=== PATIENT | male | born 1990 | race Caucasian/White ===

== ENCOUNTER → 2021-04-14 | Outpatient (CLI) | payer OTHER ==
--- NOTE | 2021-04-14 09:54 | RAD ---
3 views lumbar spine dated 04/14/2021. No comparison available. Clinical data indication: Back pain. FINDINGS: 3 views lumbar spine show normal sagittal alignment. Vertebral body heights are maintained. Posterior elements are intact. No evidence of fracture. IMPRESSION: No acute radiographic abnormality. Electronically signed by: Vlad Kelley MD (04/14/2021 9:52 AM) [id number]
== END ==
LOC: RAD 09:36
PROVIDERS: ATTEND Family Medicine
DX: M54.5 Low back pain (principal); Z68.25 Body mass index [BMI] 25.0-25.9, adult
CPT/HCPCS: 72100